=== PATIENT | male | born 1970 | race Caucasian/White ===

== ENCOUNTER 2021-02-02 12:58 | Day surgery (SDC) | payer BC ==
[2013-08-04 09:18] VITALS: BP 120/63
[2021-02-02] MEDS ORDERED: Sodium Chloride 0.9(Preservative Free) 10 ML IJ ONE (12:59)
[2021-02-02] MEDS ORDERED: Xylocaine 1% Vial 30 ML PF IJ ONE (12:59)
[2021-02-02] MEDS ORDERED: Depo-Medrol 40 MG/ML IM ONE (12:59)
[2021-02-02] MEDS ORDERED: Ketamine HCl 50 MG/ML ONE (13:54)
[2021-02-02] MEDS ORDERED: DIPRIVAN 200 MG/20 ML IV ONE (13:54)
[2021-02-02] MEDS ORDERED: Lactated Ringers 1,000 ML IV ONE (14:37)
--- NOTE | 2021-02-02 15:20 | XRAY ---
Indication: Lumbar MANINDER. Intraoperative fluoroscopy provided for 18 seconds. 2 digital spot images submitted for interpretation demonstrate midline posterior needle tip projecting just posterior to the L4-L5 interspace. Small amount of contrast injected for needle tip placement. Correlate with intraoperative findings/report.
--- NOTE | 2021-02-02 16:33 | XRAY ---
18 seconds of fluoroscopy was used in surgery for a lumbar MANINDER.
== END 2021-02-02 14:20 | disposition home or self-care (01) ==
LOC: SDC-PAIN 12:58
PROVIDERS: ATTEND Psychiatry & Neurology Pain Medicine
DX: M54.16 Radiculopathy, lumbar region (principal); I10 Essential (primary) hypertension; K21.9 Gastro-esophageal reflux disease without esophagitis; F41.8 Other specified anxiety disorders; Z79.899 Other long term (current) drug therapy
CPT/HCPCS: 62323; 72100; 77003; J1030; J2001; J2704; Q9966

== ENCOUNTER 2022-09-13 11:45 | Day surgery (SDC) | payer BC ==
[2022-09-13] MEDS ORDERED: DUONEB 0.5-3 MG/3 ml Neb IH ONE ×2 (11:46→14:19)
[2022-09-13] MEDS ORDERED: Sodium Chloride 0.9(Preservative Free) 10 ML IJ ONE (11:46)
[2022-09-13] MEDS ORDERED: Depo-Medrol 40 MG/ML IM ONE (11:46)
[2022-09-13] MEDS ORDERED: Xylocaine 1% Vial 30 ML PF IJ ONE (11:46)
[2022-09-13] MEDS ORDERED: DIPRIVAN 200 MG/20 ML IV ONE (13:50)
[2022-09-13 14:22] VITALS: PULSE 95; O2SAT 95
[2022-09-13] MEDS ORDERED: Versed 2 MG/2 ML Injection ONE ×2 (15:13→15:17)
[2022-09-13] MEDS ORDERED: ROBINUL ONE (15:15)
--- NOTE | 2022-09-13 16:33 | XRAY ---
Indication: Lumbar MANINDER. Intraoperative fluoroscopy provided for 1 minutes 7 seconds. 2 digital spot image submitted for interpretation demonstrates posterior needle tip projecting posterior to the L4-L5 interspace. Small amount of contrast injected for needle tip placement. Correlate with intraoperative findings/report.
[2022-09-13] MEDS ORDERED: Lactated Ringers 1,000 ML IV ONE (16:37)
--- NOTE | 2022-09-13 16:44 | XRAY ---
One minute and 7 seconds of fluoroscopy was used in surgery for a lumbar MANINDER.
== END 2022-09-13 15:50 | disposition home or self-care (01) ==
LOC: SDC-PAIN 11:45
PROVIDERS: ATTEND Psychiatry & Neurology Pain Medicine
DX: M54.16 Radiculopathy, lumbar region (principal); Z79.899 Other long term (current) drug therapy
CPT/HCPCS: 62323; 72100; 77003; 94640; J1030; J2001; J2250; J2704; Q9966; A9270-GY

== ENCOUNTER 2023-12-13 15:33 | Day surgery (SDC) | payer BC ==
[2013-08-04 09:18] VITALS: BP 120/63
[2023-12-13] MEDS ORDERED: Depo-Medrol 40 MG/ML IM ONE (15:34)
[2023-12-13] MEDS ORDERED: Sodium Chloride 0.9(Preservative Free) 10 ML IJ ONE (15:34)
[2023-12-13] MEDS ORDERED: XYLOCAINE-MPF 1% 5ML SDV IJ ONE (15:34)
[2023-12-13] MEDS ORDERED: Lactated Ringers 1,000 ML IV ONE (16:05)
--- NOTE | 2023-12-13 17:09 | XRAY ---
Indication: Lumbar MANINDER. Intraoperative fluoroscopy provided for 35 seconds. 2 digital spot images submitted for interpretation demonstrates posterior needle tip projecting posterior to lumbosacral junction. Small amount of contrast injected for needle tip placement. Correlate with intraoperative findings/report.
--- NOTE | 2023-12-14 08:35 | XRAY ---
35 seconds of fluoroscopy was used in surgery for a lumbar MANINDER.
== END 2023-12-13 16:35 | disposition home or self-care (01) ==
LOC: SDC-PAIN 15:33
PROVIDERS: ATTEND Psychiatry & Neurology Pain Medicine
DX: M54.16 Radiculopathy, lumbar region (principal)
CPT/HCPCS: 62323; 72100; 77003; J1030; Q9966

== ENCOUNTER 2025-02-18 16:04 | Day surgery (SDC) | payer BC, SELFPAY ==
[2013-08-04 09:18] VITALS: BP 120/63
[2025-02-18] MEDS ORDERED: LIDOCAINE HCL 1% AMPUL 5 ML IJ ONE (16:05)
[2025-02-18] MEDS ORDERED: Sodium Chloride 0.9(Preservative Free) 10 ML IJ ONE (16:05)
[2025-02-18] MEDS ORDERED: Depo-Medrol 40 MG/ML IM ONE (16:05)
--- NOTE | 2025-02-18 20:46 | XRAY ---
Indication: Lumbar MANINDER. Intraoperative fluoroscopy provided for 24 seconds. 3 digital spot image submitted for interpretation demonstrates posterior needle tip projecting posterior to last lumbar segment. Small amount of contrast injected for needle tip placement. Correlate with intraoperative findings/report.
--- NOTE | 2025-02-19 19:25 | XRAY ---
24 seconds of fluoroscopy was used in surgery for a lumbar MANINDER.
== END 2025-02-18 19:06 | disposition home or self-care (01) ==
LOC: SDC-PAIN 16:04
PROVIDERS: ATTEND Psychiatry & Neurology Pain Medicine
DX: M54.16 Radiculopathy, lumbar region (principal)
CPT/HCPCS: 62323; 72100; Q9966